=== PATIENT | male | born 1945 | race Hispanic/Latino ===

== ENCOUNTER 2024-08-23 09:50 | Outpatient (CLI) | payer MEDICARE, MEDICAID | END 2024-08-23 23:59 | disposition home or self-care (01) | LOC: ULT 09:50 | PROVIDERS: ATTEND Family Medicine | DX: I73.9 Peripheral vascular disease, unspecified (principal); R93.6 Abnormal findings on diagnostic imaging of limbs | CPT/HCPCS: 93922 ==

== ENCOUNTER 2024-08-24 11:55 | Outpatient (CLI) | payer MEDICARE, MEDICAID | END 2024-08-24 11:56 | disposition home or self-care (01) | LOC: SCSRAD 11:55 | PROVIDERS: ATTEND Family Medicine | DX: I73.9 Peripheral vascular disease, unspecified (principal); M79.89 Other specified soft tissue disorders ==